=== PATIENT | female | born 1940 | race Caucasian/White ===

== ENCOUNTER → 2017-02-22 | Outpatient (CLI) | payer OTHER, BC ==
--- NOTE | 2017-02-22 12:09 | DI ---
XR C-SPINE COMPLETE MIN 4VW,02/22/2017 9:45 AM: Clinical History: Neck pain. Previous Exam: July 09, 2006 Findings: 4 views of the cervical spine are obtained with flexion and extension. There is fusion of multiple levels from C3-C7. There is motion at C2/3 on flexion and extension. The prevertebral soft tissues are unremarkable. There has been interval removal of the screw and plate fixation C3-C6. Impression: Surgical fusion of C3-C7 with interval removal of screw and plate fixation of C3-C6.
== END ==
LOC: ORTHO 09:54
PROVIDERS: ATTEND Physician Assistant
DX: M54.2 Cervicalgia (principal); Z98.1 Arthrodesis status; M47.812 Spondylosis without myelopathy or radiculopathy, cervical region
CPT/HCPCS: 72050; 99214; G0463

== ENCOUNTER → 2017-02-23 | Outpatient (CLI) | payer OTHER, BC ==
--- NOTE | 2017-02-26 09:22 | DI ---
MRI CERVICAL SPINE W/O CN,02/23/2017 2:29 PM: Clinical History: Cervical spondylosis with radiculopathy. Previous Exam: None at this facility. Findings: Multiplanar MR images are obtained through the cervical spine without contrast. Bony alignment is anatomic. There has been interval fusion of C3-C7. The spinal cord demonstrates normal course, caliber and signal characteristics. The posterior fossa is unremarkable. The prevertebral soft tissues are unremarkable. The paravertebra l musculature is unremarkable. Individual intervertebral disc spaces: C2/C3: There is a broad-based disc bulge at this level with a central disc protrusion and annular fis suring combining with some facet and ligamentum flavum hypertrophy to cause moderate to severe left a nd [id number] right neural foraminal narrowing with mild central canal stenosis. C3/4: There is fusion at this level however, there are some uncovertebral joint osteophytes and some right-sided facet hypertrophy and a small central disc extrusion which contributes to mild central ca nal stenosis with moderate to severe right and moderate left neural foraminal narrowing. C4/5: There has been fusion at this level as well. There is mild central canal stenosis with mild josemanuel ateral neural foraminal narrowing. C5/6: There is fusion at this level but there is also disc desiccation and a small central disc extru emily with some facet and uncovertebral joint osteophyte formation contributing to mild central canal stenosis with mild right and severe left neural foraminal narrowing. C6/7: There is a broad-based disc osteophyte complex eccentric to the left involving the left lateral recess through far lateral zones and combining with some facet hypertrophy which is seen bilaterally . This causes mild to moderate central canal stenosis with moderate to severe left and moderate right neural foraminal narrowing. C7/T1: There is a broad-based disc bulge and some facet hypertrophy and uncovertebral joint osteophyt e formation contributing to moderate to severe left and no significant right neural foraminal narrowi ng. T1/T2: There is a small disc extrusion involving the left paracentral zone with some annular fissurin g. There is some facet and ligamentum flavum hypertrophy at these levels as well contributing to ernst re bilateral neural foraminal narrowing. T2/T3: There is significant disc degeneration with near complete loss of intervertebral disc height a t this level. There is moderate bilateral neural foraminal narrowing without central canal stenosis. Impression: Multiple areas of neural foraminal narrowing as above. This is severe in degree at multiple levels.
== END ==
LOC: MRI 14:23
PROVIDERS: ATTEND Physician Assistant
DX: M47.22 Other spondylosis with radiculopathy, cervical region (principal); M50.122 Cervical disc disorder at C5-C6 level with radiculopathy; M51.14 Intervertebral disc disorders with radiculopathy, thoracic region
CPT/HCPCS: 72141